=== PATIENT | female | born 1945 | race Caucasian/White ===

== ENCOUNTER → 2017-07-15 | Outpatient (CLI) | payer MEDICARE, OTHER ==
[~2017-07-15] MED LIST: ALB17R INH; ALLO100T70 PO; CIPR-344 PO; CLO75 PO; COM14R INH; ENTLA PO; FEBU40TA2 PO; FLUT1DIS27 IH; NEB5 PO; ONDA4TAB PO; OXYC-865 PO; PRE20 PO
--- NOTE | 2017-07-16 09:13 | RADIOLOGY IMAGING REPORT ---
FACILITY: [facility] - [place] PATIENT NAME: DEUCE IGNACIO : [id number] MR: [id number] V: [id number] EXAM DATE: [id number] ORDERING PHYSICIAN: DANN STARK TECHNOLOGIST: Socorro Pandya PROCEDURE:BILATERAL DIGITAL SCREENING MAMMOGRAM WITH CAD ASSISTED INTERPRETATION & 3D TOMOSYNTHESIS COMPARISON:None. INDICATIONS:SCREENING FINDINGS: Moderately heterogeneous fibroglandular tissue is seen throughout the breasts. There is no evidence of malignant appearing mass, malignant appearing calcifications or other secondary sign of malignancy in either breast. DIAGNOSTIC CATEGORY 1--NEGATIVE. RECOMMENDATIONS: ROUTINE MAMMOGRAM AND CLINICAL EVALUATION. IMPRESSION: BIRADS 1: Negative No significant abnormality is seen Dictated by: Caridad Enciso M.D. on 07/15/2017 at 17:12 Transcribed by: SIL on 07/16/2017 at 9:10 Approved by: Caridad Enciso M.D. on 07/16/2017 at 9:11 [facility]
== END ==
LOC: MAMO 01:19
PROVIDERS: ATTEND Nurse Practitioner Family
DX: Z12.31 Encounter for screening mammogram for malignant neoplasm of breast (principal)
CPT/HCPCS: 77063; 77067

== ENCOUNTER → 2017-09-11 | Outpatient (CLI) | payer MEDICARE, OTHER | LOC: LAB 13:32 | DX: Z11.59 Encounter for screening for other viral diseases (principal); J45.909 Unspecified asthma, uncomplicated; R07.89 Other chest pain; M10.00 Idiopathic gout, unspecified site; E83.52 Hypercalcemia; I10 Essential (primary) hypertension; I63.50 Cerebral infarction due to unspecified occlusion or stenosis of unspecified cerebral artery; E55.9 Vitamin D deficiency, unspecified; Z79.899 Other long term (current) drug therapy | CPT/HCPCS: 36415; 82040; 82247; 82306; 82310; 82374; 82435; 82465; 82565; 82607; 82947; 83718; 84075; 84132; 84155; 84295; 84443; 84450; 84460; 84478; 84520; 84550; 85027; 87522 ==

== ENCOUNTER 2018-01-03 13:09 | Emergency (ER) | payer MEDICARE, OTHER ==
[2018-01-03] MEDS ORDERED: TRAM-627 PO (13:50)
[2018-01-03] MEDS ORDERED: TRAZ50TA34 PO (13:50)
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
--- NOTE | 2018-01-03 15:11 | RADIOLOGY IMAGING REPORT ---
FACILITY: [facility] - [place] PATIENT NAME: Consuelo Woods : 1945 MR: [id number] V: [id number] EXAM DATE: ORDERING PHYSICIAN: SERGIO HARRIS TECHNOLOGIST: Location: [facility] Patient: Consuelo Woods : 1945 Visit/Account:[id number] Date of Sevice: 01/03/2018 FOREARM RIGHT Indication: Right forearm pain after fall. Comparison: None available Findings: Two views of the right forearm show no evidence of fracture, dislocation, or acute osseous abnormalit y. No aggressive bony lesion. No periosteal abnormality. Soft tissues show mild edema. No evidence of radiopaque foreign body. IMPRESSION: 1.No acute osseous abnormality right forearm Report Dictated By: Grey Barnes at 01/03/2018 3:05 PM Report E-Signed By: Grey Barnes at 01/03/2018 3:07 PM WSN:[id number]
--- NOTE | 2018-01-03 15:15 | RADIOLOGY IMAGING REPORT ---
FACILITY: [facility] - [place] PATIENT NAME: Consuelo Woods : 1945 MR: [id number] V: [id number] EXAM DATE: ORDERING PHYSICIAN: SERGIO HARRIS TECHNOLOGIST: Location: [facility] - [place] Patient: Consuelo Woods : 1945 Visit/Account:[id number] Date of Sevice: 01/03/2018 KNEE 4 OR MORE VIEWS BILATERAL INDICATION: Bilateral knee pain after fall. COMPARISON: None available FINDINGS: 4 views of both knees. The knees are symmetric. No fracture or dislocation. No joint effu william. No aggressive bony lesions. No appreciable degenerative changes. Soft tissues are unremarkable. IMPRESSION: No acute abnormality. Report Dictated By: Grey Barnes at 01/03/2018 3:07 PM Report E-Signed By: Grey Barnes at 01/03/2018 3:11 PM WSN:[id number]
[2018-01-03 15:32] VITALS: BP 147/89
== END 2018-01-03 15:33 | disposition home or self-care (01) ==
LOC: ER 13:49
DX: S80.00XA Contusion of unspecified knee, initial encounter (principal); S50.11XA Contusion of right forearm, initial encounter; M19.90 Unspecified osteoarthritis, unspecified site; M10.9 Gout, unspecified; W17.2XXA Fall into hole, initial encounter; Z86.73 Personal history of transient ischemic attack (TIA), and cerebral infarction without residual deficits; Z87.442 Personal history of urinary calculi; Z79.01 Long term (current) use of anticoagulants; Z79.899 Other long term (current) drug therapy
CPT/HCPCS: 99284

== ENCOUNTER 2018-02-11 20:18 | Emergency (ER) | payer MEDICARE, OTHER ==
[~2018-02-11 20:18] MED LIST changes: +TRAM-627 PO; +TRAZ50TA34 PO
[2018-02-11] MEDS ORDERED: AMLO-5 PO (20:28)
[2018-02-11] MEDS ORDERED: METO50TA19 PO (20:28)
--- NOTE | 2018-02-11 20:33 | ER Report ---
History and Physical Time Seen By MD: 20:23 Hx. of Stated Complaint: PT STATES SHE WAS NOT FEELING WELL. TOOK BP, IT WAS 181/106. TOOK HER MEDS AN HOUR AGO. STILL FEELS TIGHT IN THE CHEST, JITTERY HPI/ROS CHIEF COMPLAINT: Not feeling well, blood pressure elevated HISTORY OF PRESENT ILLNESS: 72-year-old female presents ambulatory to the ER stating she's not feeling well. She noted her blood pressure was noted this evening. She took her medication as she normally does. But she's not feeling any better. Her blood pressure remains elevated. She denies headache, blurry vision, nausea or vomiting. Patient denies chest pain or shortness of breath. Patient denies dysuria REVIEW OF SYSTEMS: Respiratory: No cough, no dyspnea. Cardiovascular: No chest pain, no palpitations. Gastrointestinal: No vomiting, no abdominal pain. Musculoskeletal: No back pain. Allergies: Coded Allergies: Iodinated Contrast- Oral and IV Dye (Verified Allergy, Mild, THROAT SWELLING, 02/11/18) Wheat Containing Prod (Verified Allergy, Mild, 02/11/18) aspirin (Verified Allergy, Mild, ABD PAIN, HIVES, 02/11/18) propoxyphene (Verified Allergy, Mild, PARALYSIS, 02/11/18) yeast, dried (Verified Allergy, Mild, 02/11/18) Uncoded Allergies: DAIRY FOODS (Allergy, Mild, 08/12/07) MANY FOOD ALLERGIES (Allergy, Mild, 08/12/07) Home Meds Reported Medications Metoprolol Succinate (METOPROLOL SUCCINATE) 50 Mg Tab.er.24h, 2 TAB PO QDAY, TAB 02/11/18 Amlodipine/Atorvastatin (AMLODIPINE-ATORVAST 10-10 MG) 1 Each Tablet, 1 EACH PO QDAY, TAB 02/11/18 Tramadol Hcl (ULTRAM) 50 Mg Tablet, 50-100 MG PO Q4-6H, TAB 01/03/18 Trazodone Hcl (TRAZODONE HCL) 50 Mg Tablet, 50 MG PO QHS 01/03/18 Allopurinol (ALLOPURINOL) 100 Mg Tablet, 100 MG PO BID, #10 TAB 09/16/15 Clopidogrel Bisulfate (Plavix) 75 Mg Tab, 75 MG PO QDAY 08/12/07 Discontinued Reported Medications Nebivolol Hcl (Bystolic) 5 Mg Tablet, 5 MG PO DAILY, 0 Refills 04/02/10 Discontinued Scripts Oxycodone Hcl/Acetaminophen (PERCOCET 5-325 MG TABLET) 1 Each Tablet, 1 EACH PO Q6-8H PRN for PAIN, #20 TAB Prov:AMANDA MCINTYRE V DO 06/28/16 Oxycodone Hcl/Acetaminophen (PERCOCET 5-325 MG TABLET) 1 Each Tablet, 0.5-1 EACH PO Q4-6H PRN for PAIN, #14 TAB Prov:NICK CRUZ MD 09/16/15 Past Medical/Surgical History Patient has a past medical history of CVA, asthma, kidney stones, arthritis, gout. Patient has surgical history of cholecystectomy. Reviewed Nurses Notes: Yes Old Medical Records Reviewed: Yes Hx Smoking: No Constitutional Physical Exam General Appearance: The patient is alert, has no immediate need for airway protection and no current signs of toxicity. BP grossly elevated HEENT: Pupils equal and round no injection. PERRLA, oropharynx without redness or exudate Respiratory: Chest is non tender, lungs are clear to auscultation. Cardiac: regular rate and rhythm Gastrointestinal: Abdomen is soft and non tender, no masses, bowel sounds normal. Musculoskeletal: Neck: Neck is supple and non tender. Extremities have full range of motion and are non tender. Skin: No rashes or lesions. Neuro: Grossly Nonfocal DIFFERENTIAL DIAGNOSIS: After history and physical exam differential diagnosis was considered for weakness including but not limited to electrolyte abnormality, depression, anxiety, CVA, spinal cord abnormality, and infectious causes. Additionally, Medical Decision Making Data Points Laboratory Hematology Test 02/11/18 20:40 02/11/18 23:48 Red Blood Count 5.21 M/uL (4.17-5.56) Mean Corpuscular Volume 88.0 fL (80.0-96.0) Mean Corpuscular Hemoglobin 30.7 pg (26.0-33.0) Mean Corpuscular Hemoglobin Concent 34.8 g/dL (32.0-36.0) Red Cell Distribution Width 13.8 % (11.5-14.5) Mean Platelet Volume 8.2 fL (7.2-11.1) Neutrophils (%) (Auto) 72.2 % (39.4-72.5) Lymphocytes (%) (Auto) 18.2 % (17.6-49.6) Monocytes (%) (Auto) 8.0 % (4.1-12.4) Eosinophils (%) (Auto) 0.6 % (0.4-6.7) Basophils (%) (Auto) 1.0 % (0.3-1.4) Nucleated RBC Relative Count (auto) 0.0 /100WBC Neutrophils # (Auto) 7.3 K/uL (2.0-7.4) Lymphocytes # (Auto) 1.8 K/uL (1.3-3.6) Monocytes # (Auto) 0.8 K/uL (0.3-1.0) Eosinophils # (Auto) 0.1 K/uL (0.0-0.5) Basophils # (Auto) 0.1 K/uL (0.0-0.1) Nucleated RBC Absolute Count (auto) 0.00 K/uL Sodium Level 144 mmol/L (137-145) Potassium Level 3.4 mmol/L (3.5-5.0) Chloride Level 103 mmol/L (98-107) Carbon Dioxide Level 27 mmol/L (22-31) Blood Urea Nitrogen 18 mg/dl (7-18) Creatinine 1.10 mg/dl (0.52-1.04) Glomerular Filtration Rate Calc 48.8 Random Glucose 118 mg/dl (75-110) Calcium Level 10.2 mg/dl (8.4-10.2) Total Bilirubin 0.4 mg/dl (0.2-1.3) Aspartate Amino Transf (AST/SGOT) 18 U/L (0-35) Alanine Aminotransferase (ALT/SGPT) 25 U/L (0-56) Alkaline Phosphatase 109 U/L (0-126) B-Type Natriuretic Peptide 31 pg/ml (0-100) Total Protein 7.4 g/dl (6.3-8.2) Albumin 4.4 g/dl (3.5-5.0) Troponin I 0.022 ng/ml Chemistry Test 02/11/18 20:40 02/11/18 23:48 White Blood Count 10.1 k/uL (4.5-11.0) Red Blood Count 5.21 M/uL (4.17-5.56) Hemoglobin 16.0 g/dL (12.0-16.0) Hematocrit 45.8 % (34.0-47.0) Mean Corpuscular Volume 88.0 fL (80.0-96.0) Mean Corpuscular Hemoglobin 30.7 pg (26.0-33.0) Mean Corpuscular Hemoglobin Concent 34.8 g/dL (32.0-36.0) Red Cell Distribution Width 13.8 % (11.5-14.5) Platelet Count 247 K/uL (150-450) Mean Platelet Volume 8.2 fL (7.2-11.1) Neutrophils (%) (Auto) 72.2 % (39.4-72.5) Lymphocytes (%) (Auto) 18.2 % (17.6-49.6) Monocytes (%) (Auto) 8.0 % (4.1-12.4) Eosinophils (%) (Auto) 0.6 % (0.4-6.7) Basophils (%) (Auto) 1.0 % (0.3-1.4) Nucleated RBC Relative Count (auto) 0.0 /100WBC Neutrophils # (Auto) 7.3 K/uL (2.0-7.4) Lymphocytes # (Auto) 1.8 K/uL (1.3-3.6) Monocytes # (Auto) 0.8 K/uL (0.3-1.0) Eosinophils # (Auto) 0.1 K/uL (0.0-0.5) Basophils # (Auto) 0.1 K/uL (0.0-0.1) Nucleated RBC Absolute Count (auto) 0.00 K/uL Glomerular Filtration Rate Calc 48.8 Calcium Level 10.2 mg/dl (8.4-10.2) Total Bilirubin 0.4 mg/dl (0.2-1.3) Aspartate Amino Transf (AST/SGOT) 18 U/L (0-35) Alanine Aminotransferase (ALT/SGPT) 25 U/L (0-56) Alkaline Phosphatase 109 U/L (0-126) B-Type Natriuretic Peptide 31 pg/ml (0-100) Total Protein 7.4 g/dl (6.3-8.2) Albumin 4.4 g/dl (3.5-5.0) Troponin I 0.022 ng/ml EKG/Imaging EKG Interpretation 12 lead EK Rhythm: normal sinus rhythm [place]: normal QRS: normal ST segments: normal, no evidence of ischemia or dysrhythmia Repeat EKG for jaw pain 12 lead EK Rhythm: normal sinus rhythm at 80 bpm [place]: normal QRS:? Old inferior Q waves ST segments: Diffuse T-wave flattening Imaging X-ray: Single view portable chest x-ray was obtained. I viewed the images myself on the PACS system. My interpretation of the images is: No infiltrate, no effusion, normal mediastinum, comparison to previous chest x-ray 07/04/16, no significant change. The radiologist interpretation had no clinically significant variation from this interpretation. ED Course/Re-evaluation Clinical Indication for ER IV: IV Access ED Course Patient was admitted to an examination room. H&P was done. The differential diagnoses was considered. On clinical examination. Patient has a nonfocal neurologic examination. Her blood pressures grossly elevated. Patient's medicated with Tylenol for headache. She is given labetalol for her blood pressure. Later she developed jaw pain and was given tramadol. A repeat EKG w as performed. See if there any evidence of ischemic changes with the jaw pain. There were non- Her troponin and EKG were unremarkable for evidence of ischemic changes. After observation of 2 hours. Patient's blood pressures down, her headache has resolved. Her blood pressure is normal. She feels back to normal. I see no indication for admission. Her jaw pain is resolved to be discharged home. Patient advised to continue on her medication. A follow-up with her primary care doctor early next week for blood pressure recheck Decision to Disposition Date: Feb 12, 2018 Decision to Disposition Time: 00:20 Depart Departure Latest Vital Signs Impression: Primary Impression: Elevated blood pressure reading Additional Impressions: History of hypertension Mild headache Tightness in chest History of CVA (cerebrovascular accident) Condition: Improved Disposition: HOME OR SELF-CARE Referrals: DANN STARK (PCP) Patient Instructions: Hypertension (ED) Additional Instructions: Follow-up with your primary care early next week Return to the ER for any worsening Problem Qualifiers NAVEED BLACK DO Feb 11, 2018 20:32
[2018-02-11] MEDS ORDERED: LABETALOL HCL 100 MG/20ML VIAL IVP ONE (20:35)
[2018-02-11 20:48] LABS: PLATELET COUNT, AUTOMATED 247 K/uL (150-450)
--- NOTE | 2018-02-11 21:05 | EKG ---
FAC[place]: [facility] [place] PATIENT NAME: DEUCE IGNACIO : [id number] MR: [id number] V: [id number] EXAM DATE: ORDERING PHYSICIAN: NAVEED BLACK TECHNOLOGIST: VERA Solano Reason : CARDIAC Blood Pressure : / mmHG Vent. Rate : 091 BPM Atrial Rate : 091 BPM P-R Int : 158 ms QRS Dur : 088 ms QT Int : 358 ms P-R-T Axes : 020 025 037 degrees QTc Int : 440 ms Normal sinus rhythm Normal ECG No previous ECGs available Confirmed by ELIZABETH BAEZ ([id number]) on 02/12/2018 6:30:15 AM Referred By: Confirmed By:ELIZABETH BAEZ
[2018-02-11] MEDS ORDERED: ACETAMINOPHEN 325 MG TAB PO ONE (21:10)
[2018-02-11] MEDS ORDERED: traMADol 50 MG TAB PO ONE (21:55)
--- NOTE | 2018-02-11 22:01 | RADIOLOGY IMAGING REPORT ---
FACILITY: [facility] - [place] PATIENT NAME: Consuelo Woods : 1945 MR: [id number] V: [id number] EXAM DATE: ORDERING PHYSICIAN: NAVEED BLACK TECHNOLOGIST: [place] [facility] [place]uelo [place] : 1945 Visit/Account:[id number] Date of Sevice: 02/11/2018 EXAMINATION: Portable chest radiograph single view at 8:47 PM. HISTORY: Chest pain. COMPARISON: 07/04/2016. FINDINGS: A single portable AP view of the chest is obtained. Lines/tubes: None. Lungs/pleura: No focal consolidation or pleural effusion. Pulmonary vascularity is within normal mathew its. No evidence of pneumothorax. Heart: Normal heart size. Mediastinum: Stable mediastinal contours. Bony structures/body wall: Negative. IMPRESSION: No radiographic evidence of acute cardiopulmonary disease. Report Dictated By: Michael Puri MD at 02/11/2018 9:55 PM Report E-Signed By: Michael uPri MD at 02/11/2018 9:56 PM WSN:[id number]
--- NOTE | 2018-02-11 22:15 | EKG ---
FACILITY: [facility] - [place] PATIENT NAME: DEUCE IGNACIO : [id number] MR: [id number] V: [id number] EXAM DATE: ORDERING PHYSICIAN: NAVEED BLACK TECHNOLOGIST: VERA Solano Reason : REPEAT EKG Blood Pressure : / mmHG Vent. Rate : 080 BPM Atrial Rate : 080 BPM P-R Int : 148 ms QRS Dur : 090 ms QT Int : 392 ms P-R-T Axes : -15 026 033 degrees QTc Int : 452 ms Normal sinus rhythm When compared with ECG of 11-FEB-2018 20:34, No significant change was found Confirmed by ELIZABETH BAEZ ([id number]) on 02/12/2018 6:30:44 AM Referred By: Confirmed By:ELIZABETH BAEZ
[2018-02-12 00:15] VITALS: BP 140/87
== END 2018-02-12 00:30 | disposition home or self-care (01) ==
LOC: ER 20:41
DX: R07.89 Other chest pain (principal); Z86.73 Personal history of transient ischemic attack (TIA), and cerebral infarction without residual deficits; R68.84 Jaw pain
CPT/HCPCS: 36415; 71045; 83880; 84484; 85025; 93005; 96374; 99284; A9270; J3490; 82040; 82247; 82310; 82374; 82435; 82565; 82947; 84075; 84132; 84155; 84295; 84450; 84460; 84520

== ENCOUNTER → 2018-04-15 | Outpatient (CLI) | payer MEDICARE, OTHER ==
[~2018-04-15] MED LIST changes: +AMLO-5 PO; +METO50TA19 PO
== END ==
LOC: LAB 14:58
PROVIDERS: ATTEND Internal Medicine
DX: I10 Essential (primary) hypertension (principal)
CPT/HCPCS: 36415; 82088; 83835; 83970; 84244; 84443

== ENCOUNTER → 2018-04-20 | Outpatient (CLI) | payer MEDICARE, OTHER ==
[2018-04-20 10:54] LABS: LDL CHOLESTEROL 103 mg/dl
[2018-04-20 11:00] LABS: PLATELET COUNT, AUTOMATED 236 K/uL (150-450)
== END ==
LOC: LAB 09:53
PROVIDERS: ATTEND Nurse Practitioner Family
DX: I63.9 Cerebral infarction, unspecified (principal); M10.00 Idiopathic gout, unspecified site; E83.52 Hypercalcemia; E78.00 Pure hypercholesterolemia, unspecified; I10 Essential (primary) hypertension; D51.0 Vitamin B12 deficiency anemia due to intrinsic factor deficiency; E55.9 Vitamin D deficiency, unspecified
CPT/HCPCS: 36415; 82040; 82247; 82306; 82310; 82374; 82435; 82465; 82565; 82607; 82947; 83718; 84075; 84132; 84155; 84295; 84450; 84460; 84478; 84520; 84550; 85025

== ENCOUNTER → 2018-05-08 | Outpatient (CLI) | payer MEDICARE, OTHER | LOC: US 01:17 | PROVIDERS: ATTEND Internal Medicine | DX: R07.2 Precordial pain (principal) | CPT/HCPCS: 93017; 93350 ==

== ENCOUNTER 2018-10-26 00:30 | Outpatient (RCR) | payer MEDICARE, OTHER ==
[~2018-10-26 00:30] MED LIST changes: -TRAZ50TA34 PO; +TRAZ50TA52 PO
--- NOTE | 2018-10-26 13:51 | RADIOLOGY IMAGING REPORT ---
FACILITY: [facility] PATIENT NAME: Consuelo Woods : 1945 MR: [id number] V: [id number] EXAM DATE: ORDERING PHYSICIAN: DANN STARK TECHNOLOGIST: Location: [facility] - [place] Patient: Consuelo Woods : 1945 Visit/Account:[id number] Date of Sevice: 10/26/2018 KIDNEYS EXAMINATION: Renal ultrasound. History: Left flank pain COMPARISON STUDIES: CT abdomen pelvis June 27, 2016 FINDINGS: Kidneys: Right kidney- 11.1 x 5.2 x 5 cm Left kidney- 11.2 x 5.8 x 4.8 cm Uniform and symmetric blood flow in each kidney by Doppler ultrasound. Hydronephrosis: none There is a 9 mm cyst in the mid right kidney. Multiple calcifications are present in both kidneys Bladder: Prevoid volume 162 mL. Post void residual 73 mL. Bilateral ureteral jets are present. Sage dder wall appears mildly thickened Abdominal aorta and IVC: Aorta and IVC are patent by Doppler ultrasound. IMPRESSION: Is bilateral nephrolithiasis although no evidence of hydronephrosis Post void bladder residual 73 mL. Bladder wall appears mildly thickened Report Dictated By: Caridad Enciso MD at 10/26/2018 1:44 PM Report E-Signed By: Caridad Enciso MD at 10/26/2018 1:47 PM WSN:[id number]
--- NOTE | 2018-10-27 17:34 | RADIOLOGY IMAGING REPORT ---
FACILITY: [facility] PATIENT NAME: Consuelo Woods : 1945 MR: [id number] V: [id number] EXAM DATE: ORDERING PHYSICIAN: DANN STARK TECHNOLOGIST: Location: [facility] - [place] Patient: Consuelo Woods : 1945 Visit/Account:[id number] Date of Sevice: 10/27/2018 PARATHYROID IMAGING HISTORY: Hyperparathyroidism. TECHNIQUE: 24.0 mCi Tc-99m Sestamibi was injected intravenously. Gamma camera images were obtained o f the head, neck and chest at 15 minutes and 3 hours in various orientations following radiotracer ad ministration. SPECT imaging was also performed at 2 hours. COMPARISON: None. FINDINGS: 15 minute images: Normal uptake of tracer by the salivary glands, the thyroid gland, and the myocard ium. Excreted hepatobiliary activity is seen beneath the diaphragm. 3 hour images: Normal washout of tracer from the thyroid gland. No focal areas of abnormal radiotrac er uptake are identified in the neck or mediastinum to suggest the presence of a parathyroid adenoma. IMPRESSION: No scintigraphically evident parathyroid adenoma. Report Dictated By: Dagoberto Garay MD at 10/27/2018 5:19 PM Report E-Signed By: Dagoberto Garay MD at 10/27/2018 5:30 PM WSN:[id number]
== END 2018-10-27 18:00 | disposition home or self-care (01) ==
LOC: US 00:30 → EDSTATUS 15:40 → US 10-27 18:00
PROVIDERS: ATTEND Nurse Practitioner Family
DX: N20.0 Calculus of kidney (principal); E21.5 Disorder of parathyroid gland, unspecified
CPT/HCPCS: 76705; 78070; A9500